=== PATIENT | female | born 1990 | race Asian ===

== ENCOUNTER 2017-05-29 15:03 | Emergency (ER) | payer OTHER ==
--- NOTE | 2017-05-29 17:05 | ED Physician Documentation ---
PD HPI NECK PAIN - Stated complaint Stated Complaint: NECK PAIN - Chief complaint Chief Complaint: Ext Problem - History obtained from History obtained from: Patient - History of Present Illness Timing - duration: Weeks (1) Timing - details: Still present Location: Right Quality: Pain, Similar to prior episodes Associated symptoms: No: Weakness, Numbness Similar symptoms before: No diagnosis - Additional information Additional information: The patient is a 26-year-old active [employer] [place] female who presents with pain in the right side of her neck. Her pain has been waxing and waning for the past week. She denies any specific injury, but does report lifting objects over her head at work. She is right hand dominant. She reports history of intermittent aching in her right neck for the past 2 years. [facility] and has been prescribed ibuprofen the past. Cervical x-rays have been negative. She is requesting that an MRI be performed. Review of Systems Constitutional: denies: Fever Nose: denies: Congestion Throat: denies: Sore throat Cardiac: denies: Chest pain / pressure Respiratory: denies: Dyspnea, Cough GI: denies: Abdominal Pain, Nausea, Vomiting : denies: Dysuria Skin: denies: Rash Musculoskeletal: reports: Neck pain. denies: Back pain Neurologic: denies: Focal weakness, Numbness, Headache PD PAST MEDICAL HISTORY - Past Medical History Past Medical History: No Cardiovascular: None Respiratory: None Neuro: None Endocrine/Autoimmune: None - Past Surgical History Past Surgical History: No - Present Medications Home Medications: Ambulatory Orders Medication Instructions Recorded Confirmed Cyclobenzaprine [Flexeril] 10 mg PO TID PRN #20 tablet 05/29/17 - Allergies Allergies/Adverse Reactions: Allergies Allergy/AdvReac Type Severity Reaction Status Date / Time No Known Drug Allergies Allergy Verified 05/29/17 15:26 - Social History Does the pt smoke?: No Smoking Status: Never smoker Does the pt drink ETOH?: No Does the pt have substance abuse?: No - Immunizations Immunizations are current?: Yes - POLST Patient has POLST: No PD ED PE NORMAL - Vitals Vital signs reviewed: Yes (Initially hypertensive, but normalized by the time of discharge.) - General General: Alert and oriented X 3, Well developed/nourished - HEENT HEENT: Atraumatic, EOMI, Ears normal, Pharynx benign - Neck Neck: Supple, no meningeal sign, No bony TTP, No adenopathy, No JVD, Other ( There is tenderness to palpation along the right paracervical musculature, involving the trapezius musculature to the proximal scapula. There is no tenderness to palpation along the spinous processes. The patient is able to turn her head from side to side, although exacerbates her discomfort. She can raise her right arm above her head although that also exacerbates her discomfort.) - Cardiac Cardiac: RRR, No murmur - Respiratory Respiratory: No respiratory distress, Clear bilaterally - Back Back: No spinal TTP - Derm Derm: No rash - Extremities Extremities: No deformity, Other (There is full range of motion of the right shoulder, although elevation, particularly against resistance exacerbates the discomfort in her neck.) - Neuro Neuro: Alert and oriented X 3, No motor deficit, No sensory deficit Results - Vitals Vitals: Oxygen O2 Source Room air PD MEDICAL DECISION MAKING - ED course Complexity details: considered differential, d/w patient ED course: The patient's presentation is most consistent with right paracervical/trapezius muscle strain. Her presentation does not suggest bony abnormality, and there is no neurologic deficit detected. I discussed with her that emergent MRI is not clinically indicated, even if I was able to get one at this time of the day. She is being discharged with prescription for Flexeril, and is advised to continue taking ibuprofen as prescribed by her primary provider. I discussed with her continued symptomatic treatment, outpatient follow-up, as well as potentially worrisome signs or symptoms that should prompt reevaluation in the emergency department. Departure - Departure Disposition: 01 Home, Self Care Clinical Impression: Muscle strain Condition: Stable Instructions: ED Sprain Strain Neck Follow-Up: [facility] [Provider Group] Prescriptions: Cyclobenzaprine [Flexeril] 10 mg PO TID PRN #20 tablet PRN Reason: Spasms Comments: Apply ice pack to your right neck/shoulder intermittently for the next 3 days. Take ibuprofen as previously prescribed. You can also use Flexeril, as needed for muscle spasms. Follow up with your primary physician within 1-2 weeks. Call to schedule appointment. Return to the emergency department if you develop increasing pain, numbness or weakness in your arm, or otherwise worsening symptoms. Discharge Date/Time: 05/29/17 17:18
[2017-05-29 17:20] VITALS: BP 117/73
== END 2017-05-29 17:18 | disposition home or self-care (01) ==
LOC: ED 15:03
DX: S16.1XXA Strain of muscle, fascia and tendon at neck level, initial encounter (principal); X50.0XXA Overexertion from strenuous movement or load, initial encounter
CPT/HCPCS: 99283

== ENCOUNTER 2018-01-05 12:48 | Outpatient (CLI) | payer OTHER ==
--- NOTE | 2018-01-05 22:46 | MRI Report ---
Procedure Date: 01/05/2018 Accession Number: [id number] / [id number] Procedure: MRI - Brain W/O CPT Code: FULL RESULT: EXAM: MRI BRAIN WITHOUT CONTRAST EXAM DATE: 01/05/2018 01:25 PM. CLINICAL HISTORY: HEADACHE. COMPARISON: None. TECHNIQUE: Multiplanar, multisequence T1-weighted and fluid-sensitive MR sequences of the brain were performed. Sequences optimized for routine evaluation. Other: None. IV Contrast: None. Findings: Relevant images are indicated (image number, series number). There is no acute/subacute ischemic changes in the brain. There is no hemosiderin deposition present in the brain. There is no hemorrhage, mass or midline shift. There is no white matter disease. The pituitary, mid brain, craniocervical junction, limited evaluation upper cervical cord negative. Extraocular muscles, optic nerves, orbital apex, optic chiasm negative. Impressions: 1. No acute, subacute ischemic change. 2. Unremarkable brain, orbits as detailed. [facility]
== END 2018-01-05 12:49 | disposition home or self-care (01) ==
LOC: DI 12:48
PROVIDERS: ATTEND Radiology Diagnostic Radiology
DX: R51 Headache (principal)
CPT/HCPCS: 70551